=== PATIENT | female | born 1990 | race Asian ===

== ENCOUNTER 2017-07-29 07:25 | Inpatient (IN) | payer OTHER ==
[2017-07-29] MEDS: SODIUM CHLORIDE 0.9% 1L BAG IV* (09:08)
[2017-07-29] MEDS: CEFEPIME 2GM/50 ML (PMX) 50 ML IVPB (09:09)
[2017-07-29] MEDS: KETOROLAC 15 MG INJ IV (09:09)
[2017-07-29 09:35] LABS: ABNORMAL IP MESSAGE 1; HEMATOCRIT 34.6 % (37.0-47.0); HEMOGLOBIN 11.6 g/dl (12.0-16.0); MEAN CORPUSCULAR HEMOGLOBIN 31.3 pg (29.0-33.0); MEAN CORPUSCULAR HGB CONC 33.5 g/dl (32.0-37.0); MEAN CORPUSCULAR VOLUME 93.3 fl (82.0-101.0); MEAN PLATELET VOLUME 12.8 fl (7.4-10.4); PLATELET COUNT 46 10^3/UL (140-415); RED BLOOD COUNT 3.71 10^6/ul (4.20-5.40)
[2017-07-29 09:35] LABS: WHITE BLOOD COUNT 2.9 10^3/ul (4.8-10.8)
[2017-07-29 09:37] LABS: ADD UMIC NO; UR ASCORBIC ACID NEGATIVE (NEGATIVE); UR BILIRUBIN (Dip) 1+ mg/dL (NEGATIVE); UR BLOOD (Dip) NEGATIVE (NEGATIVE); UR CLARITY CLEAR (CLEAR); UR COLOR AMBER (YELLOW); UR GLUCOSE (Dip) NEGATIVE (NEGATIVE); UR KETONES (Dip) NEGATIVE (NEGATIVE); UR LEUKOCYTE ESTERASE (Dip) NEGATIVE Leu/ul (NEGATIVE); UR NITRITE (Dip) NEGATIVE (NEGATIVE); UR SPECIFIC GRAVITY (Dip) 1.025 (1.003-1.030); UR TOTAL PROTEIN (Dip) NEGATIVE (NEGATIVE); UR UROBILINOGEN (Dip) 2+ mg/dL (NEGATIVE)
[2017-07-29 09:42] LABS: POSITIVE DIFF @See below
[2017-07-29 09:49] LABS: ADD MAN DIFF? YES; INR 1.51; PARTIAL THROMBOPLASTIN TIME 33.7 Sec (25.0-35.0); PROTIME 18.5 Sec (11.9-14.9); PT RATIO 1.4
[2017-07-29 10:39] LABS: ANISOCYTOSIS 1+ (0-0); BAND NEUTROPHILS #M 0.6 10^3/ul (0.0-0.6); BAND NEUTROPHILS % (M) 23 % (0-4); EOSINOPHILS % (M) 4 % (0-7); LYMPHOCYTES #M 0.1 10^3/ul (0.8-2.9); LYMPHOCYTES % (M) 4 % (15-51); MONOCYTES % (M) 1 % (0-11); PLATELET ESTIMATE DECREASED; POIKILOCYTOSIS 1+ (0-0); PROMYELOCYTES % (M) 1 % (0-0); SEGMENTED NEUTROPHILS (M) % 67 % (39-77); SMUDGE%M 11 % (0-0)
[2017-07-29 11:01] LABS: ALANINE AMINOTRANSFERASE 630 IU/L (13-69); ALBUMIN 3.7 g/dl (3.3-4.9); ALBUMIN/GLOBULIN RATIO 1.02; ALKALINE PHOSPHATASE 194 IU/L (42-121); ANION GAP 14 (8-16); BILIRUBIN,INDIRECT 2.5 mg/dl (0-1.1); BILIRUBIN,TOTAL 4.5 mg/dl (0.2-1.3); BLOOD UREA NITROGEN 12 mg/dl (7-20); CALCIUM 8.5 mg/dl (8.4-10.2); CARBON DIOXIDE 20 mmol/L (21-31); CHLORIDE 113 mmol/L (97-110); CREATININE 0.67 mg/dl (0.44-1.00); GLUCOSE 92 mg/dl (70-220); LIPASE 121 U/L (23-300); POTASSIUM 4.6 mmol/L (3.5-5.1); SODIUM 142 mmol/L (135-144); TOTAL PROTEIN 7.3 g/dl (6.1-8.1)
[2017-07-29 11:02] LABS: LACTIC ACID 1.3 mmol/L (0.5-2.0)
[2017-07-29 11:08] LABS: ASPARTATE AMINO TRANSFERASE 803 IU/L (15-46)
[2017-07-29 11:16] LABS: TROPONIN-I < 0.012 ng/ml (0.00-0.12)
[2017-07-29] MEDS ORDERED: ONDANSETRON 4 MG INJ IV ×2 (11:30)
[2017-07-29] MEDS ORDERED: DOCUSATE SODIUM 100 MG CAP PO (11:30)
[2017-07-29] MEDS ORDERED: BISACODYL 10 MG SUPP PR (11:30)
[2017-07-29] MEDS ORDERED: morphine 2 MG INJ IV (11:30)
[2017-07-29] MEDS ORDERED: NACL 0.9% 3 ML SYG IV (11:30)
[2017-07-29] MEDS ORDERED: ACETAMINOPHEN 325 MG TAB PO (11:30)
[2017-07-29] MEDS ORDERED: MAGNESIUM HYDROXIDE 30ML CUP PO (11:30)
[2017-07-29] MEDS: CIPROFLOXACIN 200 MG/D5W IVPB 100 ML IVPB (11:50)
[2017-07-29] MEDS: IBUPROFEN 600 MG TAB PO (13:28)
[2017-07-29 15:00] LABS: LACTIC ACID 1.7 mmol/L (0.5-2.0)
[2017-07-29 15:04] LABS: C-REACTIVE PROTEIN 2.3 mg/dl (0.0-0.9)
[2017-07-29] MEDS: MEROPENEM 500MG/50 ML (PMX) 50 ML IVPB (22:31)
[2017-07-30] MEDS: PANTOPRAZOLE 40 MG INJ IV (06:02)
[2017-07-30] MEDS: MEROPENEM 500MG/50 ML (PMX) 50 ML IVPB ×3 (06:02→21:39)
[2017-07-30 07:31] LABS: WHITE BLOOD COUNT 6.3 10^3/ul (4.8-10.8)
[2017-07-30 07:31] LABS: ABNORMAL IP MESSAGE 1; HEMATOCRIT 32.3 % (37.0-47.0); MEAN CORPUSCULAR HEMOGLOBIN 32.2 pg (29.0-33.0); MEAN CORPUSCULAR HGB CONC 34.1 g/dl (32.0-37.0); MEAN CORPUSCULAR VOLUME 94.4 fl (82.0-101.0); MEAN PLATELET VOLUME 11.9 fl (7.4-10.4); RED BLOOD COUNT 3.42 10^6/ul (4.20-5.40); RED CELL DISTRIBUTION WIDTH 14.5 % (11.5-14.5)
[2017-07-30 07:33] LABS: POSITIVE DIFF @See below
[2017-07-30 07:35] LABS: ADD MAN DIFF? YES; PLATELET COUNT 30 10^3/UL (140-415)
[2017-07-30 07:53] LABS: ALANINE AMINOTRANSFERASE 406 IU/L (13-69); ALBUMIN 2.8 g/dl (3.3-4.9); ALKALINE PHOSPHATASE 137 IU/L (42-121); ANION GAP 10 (8-16); ASPARTATE AMINO TRANSFERASE 312 IU/L (15-46); BILIRUBIN,INDIRECT 2.8 mg/dl (0-1.1); BILIRUBIN,TOTAL 6.5 mg/dl (0.2-1.3); BLOOD UREA NITROGEN 16 mg/dl (7-20); CALCIUM 8.1 mg/dl (8.4-10.2); CARBON DIOXIDE 23 mmol/L (21-31); CHLORIDE 115 mmol/L (97-110); CHOL/HDL RATIO 1.4 RATIO; CHOLESTEROL 75 mg/dl (100-200); CREATININE 0.67 mg/dl (0.44-1.00); GLUCOSE 83 mg/dl (70-220); HDL CHOLESTEROL 53 mg/dl (33-83); LDL CHOLESTEROL,CALCULATED 9 mg/dl; MAGNESIUM 1.6 mg/dl (1.7-2.5); PHOSPHORUS 2.6 mg/dl (2.5-4.9); POTASSIUM 3.8 mmol/L (3.5-5.1); SODIUM 144 mmol/L (135-144); TOTAL PROTEIN 5.9 g/dl (6.1-8.1); TRIGLYCERIDES 65 mg/dl (0-149)
[2017-07-30 08:03] LABS: HEMOGLOBIN A1C 4.5 % (0-5.9)
[2017-07-30 08:09] LABS: FREE THYROXINE INDEX (Calc) 1.73 ug/ml (0.65-3.89); T3 UPTAKE 48.1 % (23.5-40.5); T4 (THYROXINE) 3.6 ug/dl (5.5-11.0)
[2017-07-30] MEDS: LACTULOSE 30ML CUP PO (08:17)
[2017-07-30 08:56] LABS: ANISOCYTOSIS 1+ (0-0); BAND NEUTROPHILS #M 1.5 10^3/ul (0.0-0.6); BAND NEUTROPHILS % (M) 25 % (0-4); BURR CELLS 1+ (0-0); EOSINOPHILS % (M) 1 % (0-7); LYMPHOCYTES #M 0.1 10^3/ul (0.8-2.9); LYMPHOCYTES % (M) 2 % (15-51); MONOCYTE #M 0.4 10^3/ul (0.3-0.9); MONOCYTES % (M) 7 % (0-11); PLATELET ESTIMATE DECREASED; POIKILOCYTOSIS 1+ (0-0); POLYCHROMASIA 1+ (0-0); ROULEAU 1+ (0-0); SEG NEUT #M 4.2 10^3/ul (1.6-7.5); SEGMENTED NEUTROPHILS (M) % 65 % (39-77); SMUDGE%M 2 % (0-0)
[2017-07-30 18:23] LABS: ALANINE AMINOTRANSFERASE 380 IU/L (13-69); ALBUMIN 3.3 g/dl (3.3-4.9); ALKALINE PHOSPHATASE 155 IU/L (42-121); ASPARTATE AMINO TRANSFERASE 256 IU/L (15-46); BILIRUBIN,TOTAL 6.6 mg/dl (0.2-1.3); TOTAL PROTEIN 6.7 g/dl (6.1-8.1)
[2017-07-30 18:25] LABS: BILIRUBIN,TOTAL 6.6 mg/dl (0.2-1.3)
[2017-07-30] MEDS: traMADol 50 MG TAB PO (20:39)
[2017-07-31 05:49] LABS: ADD MAN DIFF? NO
[2017-07-31 05:54] LABS: WHITE BLOOD COUNT 5.3 10^3/ul (4.8-10.8)
[2017-07-31 05:54] LABS: ABNORMAL IP MESSAGE 1; BASOPHILS % 0.4 % (0.0-2.0); EOSINOPHILS # 0.2 10^3/ul (0.0-0.5); EOSINOPHILS % 3.6 % (0.0-7.0); HEMATOCRIT 32.2 % (37.0-47.0); HEMOGLOBIN 10.9 g/dl (12.0-16.0); LYMPHOCYTES # 0.5 10^3/ul (0.8-2.9); LYMPHOCYTES % 10.3 % (15.0-51.0); MEAN CORPUSCULAR HEMOGLOBIN 31.6 pg (29.0-33.0); MEAN CORPUSCULAR HGB CONC 33.9 g/dl (32.0-37.0); MEAN CORPUSCULAR VOLUME 93.3 fl (82.0-101.0); MEAN PLATELET VOLUME 11.5 fl (7.4-10.4); MONOCYTE # 0.6 10^3/ul (0.3-0.9); MONOCYTES % 10.8 % (0.0-11.0); NEUTROPHIL # 3.9 10^3/ul (1.6-7.5); NEUTROPHILS % 73.8 % (39.0-77.0); PLATELET COUNT 45 10^3/UL (140-415); RED BLOOD COUNT 3.45 10^6/ul (4.20-5.40); RED CELL DISTRIBUTION WIDTH 13.9 % (11.5-14.5)
[2017-07-31] MEDS: PANTOPRAZOLE 40 MG INJ IV (05:57)
[2017-07-31] MEDS: MEROPENEM 500MG/50 ML (PMX) 50 ML IVPB ×3 (06:02→21:28)
[2017-07-31 06:21] LABS: PROTIME 20.3 Sec (11.9-14.9); PT RATIO 1.6
[2017-07-31 06:24] LABS: POSITIVE DIFF @See below
[2017-07-31 06:42] LABS: ALANINE AMINOTRANSFERASE 293 IU/L (13-69); ALBUMIN 2.8 g/dl (3.3-4.9); ALBUMIN/GLOBULIN RATIO 0.84; ALKALINE PHOSPHATASE 140 IU/L (42-121); ANION GAP 11 (8-16); ASPARTATE AMINO TRANSFERASE 160 IU/L (15-46); BILIRUBIN,INDIRECT 2.3 mg/dl (0-1.1); BILIRUBIN,TOTAL 4.9 mg/dl (0.2-1.3); BLOOD UREA NITROGEN 11 mg/dl (7-20); CALCIUM 8.2 mg/dl (8.4-10.2); CARBON DIOXIDE 22 mmol/L (21-31); CHLORIDE 112 mmol/L (97-110); CREATININE 0.66 mg/dl (0.44-1.00); GLUCOSE 83 mg/dl (70-220); POTASSIUM 3.6 mmol/L (3.5-5.1); SODIUM 141 mmol/L (135-144); TOTAL PROTEIN 6.1 g/dl (6.1-8.1)
[2017-08-01] MEDS: MEROPENEM 500MG/50 ML (PMX) 50 ML IVPB ×3 (05:44→21:22)
[2017-08-01 06:25] LABS: ADD MAN DIFF? NO
[2017-08-01 06:35] LABS: ABNORMAL IP MESSAGE 1; BASOPHILS % 0.3 % (0.0-2.0); EOSINOPHILS # 0.2 10^3/ul (0.0-0.5); EOSINOPHILS % 5.4 % (0.0-7.0); HEMATOCRIT 32.9 % (37.0-47.0); HEMOGLOBIN 11.3 g/dl (12.0-16.0); LYMPHOCYTES # 0.5 10^3/ul (0.8-2.9); LYMPHOCYTES % 16.4 % (15.0-51.0); MEAN CORPUSCULAR HEMOGLOBIN 31.7 pg (29.0-33.0); MEAN CORPUSCULAR HGB CONC 34.3 g/dl (32.0-37.0); MEAN CORPUSCULAR VOLUME 92.4 fl (82.0-101.0); MEAN PLATELET VOLUME 11.9 fl (7.4-10.4); MONOCYTE # 0.3 10^3/ul (0.3-0.9); MONOCYTES % 11.4 % (0.0-11.0); NEUTROPHILS % 65.8 % (39.0-77.0); PLATELET COUNT 51 10^3/UL (140-415); RED BLOOD COUNT 3.56 10^6/ul (4.20-5.40); RED CELL DISTRIBUTION WIDTH 13.7 % (11.5-14.5)
[2017-08-01 06:45] LABS: POSITIVE DIFF @See below
[2017-08-01 06:59] LABS: ALANINE AMINOTRANSFERASE 240 IU/L (13-69); ALBUMIN/GLOBULIN RATIO 0.85; ALKALINE PHOSPHATASE 175 IU/L (42-121); ANION GAP 14 (8-16); ASPARTATE AMINO TRANSFERASE 99 IU/L (15-46); BILIRUBIN,INDIRECT 1.9 mg/dl (0-1.1); BILIRUBIN,TOTAL 4.4 mg/dl (0.2-1.3); BLOOD UREA NITROGEN 6 mg/dl (7-20); CALCIUM 8.3 mg/dl (8.4-10.2); CARBON DIOXIDE 19 mmol/L (21-31); CHLORIDE 112 mmol/L (97-110); CREATININE 0.61 mg/dl (0.44-1.00); GLUCOSE 89 mg/dl (70-220); POTASSIUM 3.9 mmol/L (3.5-5.1); SODIUM 141 mmol/L (135-144); TOTAL PROTEIN 6.5 g/dl (6.1-8.1)
[2017-08-01] MEDS: FAMOTIDINE 20 MG TAB PO (08:38)
[2017-08-01] MEDS: IBUPROFEN 400 MG TAB PO (08:38)
[2017-08-02 05:43] LABS: ADD MAN DIFF? NO
[2017-08-02] MEDS: MEROPENEM 500MG/50 ML (PMX) 50 ML IVPB ×3 (05:45→21:27)
[2017-08-02 05:48] LABS: ABNORMAL IP MESSAGE 1; BASOPHILS % 0.4 % (0.0-2.0); EOSINOPHILS # 0.1 10^3/ul (0.0-0.5); EOSINOPHILS % 5.6 % (0.0-7.0); HEMATOCRIT 34.3 % (37.0-47.0); HEMOGLOBIN 11.8 g/dl (12.0-16.0); LYMPHOCYTES # 0.5 10^3/ul (0.8-2.9); LYMPHOCYTES % 21.6 % (15.0-51.0); MEAN CORPUSCULAR HEMOGLOBIN 31.6 pg (29.0-33.0); MEAN CORPUSCULAR HGB CONC 34.4 g/dl (32.0-37.0); MEAN CORPUSCULAR VOLUME 91.7 fl (82.0-101.0); MEAN PLATELET VOLUME 10.9 fl (7.4-10.4); MONOCYTE # 0.3 10^3/ul (0.3-0.9); MONOCYTES % 13.4 % (0.0-11.0); NEUTROPHIL # 1.4 10^3/ul (1.6-7.5); NEUTROPHILS % 58.6 % (39.0-77.0); PLATELET COUNT 61 10^3/UL (140-415); RED BLOOD COUNT 3.74 10^6/ul (4.20-5.40); RED CELL DISTRIBUTION WIDTH 13.6 % (11.5-14.5)
[2017-08-02 05:48] LABS: WHITE BLOOD COUNT 2.3 10^3/ul (4.8-10.8)
[2017-08-02 06:50] LABS: C-REACTIVE PROTEIN 3.3 mg/dl (0.0-0.9)
[2017-08-02 06:50] LABS: POSITIVE DIFF @See below
[2017-08-02 07:42] LABS: ERYTHROCYTE SEDIMENTATION RATE 30 mm/Hr (0-20)
[2017-08-02] MEDS: FAMOTIDINE 20 MG TAB PO (08:55)
[2017-08-03] MEDS: MEROPENEM 500MG/50 ML (PMX) 50 ML IVPB ×2 (05:34→13:25)
[2017-08-03] MEDS: FAMOTIDINE 20 MG TAB PO (09:17)
== END 2017-08-03 15:10 | disposition home or self-care (01) | DRG 871 ==
LOC: E/R 07:25 → MS2 11:09
PROVIDERS: Hospitalist
DX: A41.9 Sepsis, unspecified organism (principal); Q44.2 Atresia of bile ducts; K83.0 Cholangitis; D61.818 Other pancytopenia; D68.9 Coagulation defect, unspecified; K76.6 Portal hypertension; K74.60 Unspecified cirrhosis of liver; Z90.49 Acquired absence of other specified parts of digestive tract; R16.1 Splenomegaly, not elsewhere classified
CPT/HCPCS: 36415; 71045; 74181; 80053; 80061; 80076; 81003; 81025; 82247; 82248; 83036; 83605; 83690; 83735; 84100; 84436; 84443; 84479; 84484; 84703; 85025; 85610; 85651; 85730; 86140; 87040; 87086; 93005; 96374; 96375; 99291-25

== ENCOUNTER 2018-03-17 06:55 | Inpatient (IN) | payer OTHER ==
[2018-03-17 08:08] LABS: ABNORMAL IP MESSAGE 1; HEMATOCRIT 33.5 % (37.0-47.0); HEMOGLOBIN 11.3 g/dl (12.0-16.0); MEAN CORPUSCULAR HEMOGLOBIN 31.8 pg (29.0-33.0); MEAN CORPUSCULAR HGB CONC 33.7 g/dl (32.0-37.0); MEAN CORPUSCULAR VOLUME 94.4 fl (82.0-101.0); MEAN PLATELET VOLUME 11.2 fl (7.4-10.4); PLATELET COUNT 45 10^3/UL (140-415); RED BLOOD COUNT 3.55 10^6/ul (4.20-5.40); RED CELL DISTRIBUTION WIDTH 13.3 % (11.5-14.5)
[2018-03-17 08:08] LABS: WHITE BLOOD COUNT 2.2 10^3/ul (4.8-10.8)
[2018-03-17 08:14] LABS: ADD MAN DIFF? YES; POSITIVE DIFF @See below
[2018-03-17 08:21] LABS: ADD UMIC YES; UR AMORPHOUS CRYSTAL FEW /HPF (NONE SEEN); UR ASCORBIC ACID NEGATIVE (NEGATIVE); UR BILIRUBIN (Dip) 1+ mg/dL (NEGATIVE); UR BLOOD (Dip) NEGATIVE (NEGATIVE); UR CLARITY CLOUDY (CLEAR); UR COLOR AMBER (YELLOW); UR GLUCOSE (Dip) NEGATIVE (NEGATIVE); UR KETONES (Dip) NEGATIVE (NEGATIVE); UR LEUKOCYTE ESTERASE (Dip) NEGATIVE Leu/ul (NEGATIVE); UR MUCUS FEW /HPF (NONE SEEN); UR NITRITE (Dip) NEGATIVE (NEGATIVE); UR RBC 1 /HPF (0-5); UR SPECIFIC GRAVITY (Dip) 1.018 (1.003-1.030); UR SQUAMOUS EPITHELIAL CELL FEW /HPF (FEW); UR TOTAL PROTEIN (Dip) NEGATIVE (NEGATIVE); UR UROBILINOGEN (Dip) 2+ mg/dL (NEGATIVE); UR WBC 6 /HPF (0-5)
[2018-03-17 08:28] LABS: ALANINE AMINOTRANSFERASE 314 IU/L (13-69); ALBUMIN 3.9 g/dl (3.3-4.9); ALBUMIN/GLOBULIN RATIO 1.18; ALKALINE PHOSPHATASE 230 IU/L (42-121); ANION GAP 7 (5-13); ASPARTATE AMINO TRANSFERASE 271 IU/L (15-46); BILIRUBIN,INDIRECT 2.5 mg/dl (0-1.1); BILIRUBIN,TOTAL 3.4 mg/dl (0.2-1.3); BLOOD UREA NITROGEN 11 mg/dl (7-20); CALCIUM 9.2 mg/dl (8.4-10.2); CARBON DIOXIDE 25 mmol/L (21-31); CHLORIDE 110 mmol/L (97-110); CREATININE 0.64 mg/dl (0.44-1.00); Estimated GFR > 60 mL/min (>60); GLUCOSE 92 mg/dl (70-220); LIPASE 114 U/L (23-300); POTASSIUM 4.6 mmol/L (3.5-5.1); SODIUM 142 mmol/L (135-144); TOTAL PROTEIN 7.2 g/dl (6.1-8.1)
[2018-03-17 08:47] LABS: BAND NEUTROPHILS #M 0.2 10^3/ul (0.0-0.6); BAND NEUTROPHILS % (M) 10 % (0-4); BASOPHILS % (M) 1 % (0-2); EOSINOPHILS % (M) 4 % (0-7); GIANT THROMBO% (M) 2 % (0-0); LYMPHOCYTES #M 0.4 10^3/ul (0.8-2.9); LYMPHOCYTES % (M) 19 % (15-51); METAMYELOCYTES %M 1 % (0-0); MONOCYTES % (M) 4 % (0-11); PLATELET ESTIMATE SIG DECREASED; POIKILOCYTOSIS 1+ (0-0); PROMYELOCYTES % (M) 1 % (0-0); SEG NEUT #M 1.3 10^3/ul (1.6-7.5); SEGMENTED NEUTROPHILS (M) % 60 % (39-77); TEAR DROP CELLS 1+ (0-0)
[2018-03-17] MEDS: VANCOMYCIN 1 GM (PMX) 250 ML IVPB (08:50)
[2018-03-17] MEDS: SOD CHLORIDE 0.9% 1,000 ML IV ×3 (09:00→14:44)
[2018-03-17] MEDS: CEFEPIME 1GM/50 ML (PMX) 50 ML IVPB (09:15)
[2018-03-17] MEDS ORDERED: ACETAMINOPHEN 325 MG TAB PO (09:30)
[2018-03-17] MEDS ORDERED: ONDANSETRON 4 MG INJ IV (09:30)
[2018-03-17 09:33] LABS: INR 1.29; PROTIME 16.3 Sec (11.9-14.9); PT RATIO 1.3
[2018-03-17 09:34] LABS: PARTIAL THROMBOPLASTIN TIME 32.9 Sec (23.0-35.0)
[2018-03-17 12:08] LABS: LACTIC ACID 0.9 mmol/L (0.5-2.0)
[2018-03-17 14:27] LABS: LACTIC ACID 0.6 mmol/L (0.5-2.0)
[2018-03-17 15:17] LABS: CREATINE KINASE 29 IU/L (23-200)
[2018-03-17] MEDS: CEFEPIME 1GM/50 ML IVPB (20:59)
[2018-03-17] MEDS ORDERED: CEFEPIME HCL 1 GM VIAL IM (21:00)
[2018-03-18] MEDS: SOD CHLORIDE 0.9% 1,000 ML IV ×2 (03:20→07:57)
[2018-03-18 05:42] LABS: ADD MAN DIFF? NO
[2018-03-18 05:52] LABS: ABNORMAL IP MESSAGE 1; HEMATOCRIT 31.9 % (37.0-47.0); HEMOGLOBIN 10.9 g/dl (12.0-16.0); MEAN CORPUSCULAR HGB CONC 34.2 g/dl (32.0-37.0); MEAN CORPUSCULAR VOLUME 93.5 fl (82.0-101.0); PLATELET COUNT 46 10^3/UL (140-415); RED BLOOD COUNT 3.41 10^6/ul (4.20-5.40); RED CELL DISTRIBUTION WIDTH 13.3 % (11.5-14.5)
[2018-03-18 05:52] LABS: WHITE BLOOD COUNT 1.9 10^3/ul (4.8-10.8)
[2018-03-18 06:26] LABS: POSITIVE DIFF @See below
[2018-03-18 06:39] LABS: ALANINE AMINOTRANSFERASE 290 IU/L (13-69); ALBUMIN 3.7 g/dl (3.3-4.9); ALBUMIN/GLOBULIN RATIO 1.08; ALKALINE PHOSPHATASE 258 IU/L (42-121); ANION GAP 7 (5-13); ASPARTATE AMINO TRANSFERASE 252 IU/L (15-46); BILIRUBIN,INDIRECT 1.6 mg/dl (0-1.1); BLOOD UREA NITROGEN 5 mg/dl (7-20); CALCIUM 8.9 mg/dl (8.4-10.2); CARBON DIOXIDE 22 mmol/L (21-31); CHLORIDE 112 mmol/L (97-110); CREATININE 0.56 mg/dl (0.44-1.00); Estimated GFR > 60 mL/min (>60); GLUCOSE 99 mg/dl (70-220); MAGNESIUM 1.8 mg/dl (1.7-2.5); POTASSIUM 4.2 mmol/L (3.5-5.1); SODIUM 141 mmol/L (135-144); TOTAL PROTEIN 7.1 g/dl (6.1-8.1)
[2018-03-18] MEDS: CEFEPIME 1GM/50 ML IVPB (08:00)
[2018-03-18 09:20] LABS: IRON 45 ug/dl (35-150)
[2018-03-18 09:29] LABS: % IRON SATURATION 13 % SAT (22-52); TOTAL IRON BINDING CAPACITY 337 ug/dl (241-421)
[2018-03-18 09:40] LABS: ANISOCYTOSIS 1+ (0-0); BAND NEUTROPHILS #M 0.1 10^3/ul (0.0-0.6); BAND NEUTROPHILS % (M) 6 % (0-4); BURR CELLS 1+ (0-0); ELLIPTO 1+ (0-0); EOSINOPHILS % (M) 4 % (0-7); LYMPHOCYTES #M 0.4 10^3/ul (0.8-2.9); LYMPHOCYTES % (M) 24 % (15-51); MONOCYTE #M 0.3 10^3/ul (0.3-0.9); MONOCYTES % (M) 19 % (0-11); MYELOCYTES % (M) 2 % (0-0); OVALOCYTES 1+ (0-0); PLATELET ESTIMATE SIG DECREASED; POIKILOCYTOSIS 1+ (0-0); SEG NEUT #M 0.9 10^3/ul (1.6-7.5); SEGMENTED NEUTROPHILS (M) % 45 % (39-77); SMUDGE%M 1 % (0-0); TARGET CELLS 1+ (0-0); TEAR DROP CELLS 1+ (0-0)
[2018-03-18 10:28] LABS: FOLATE 11.6 ng/ml (2.8-20.0)
[2018-03-18] MEDS: SOD FERRIC GLUC COMPLX 125 MG in SOD CHLORIDE 0.9% 100 ML IVPB (12:38)
== END 2018-03-18 16:02 | disposition home or self-care (01) | DRG 866 ==
LOC: E/R 06:55 → 2NE 09:20
DX: B34.9 Viral infection, unspecified (principal); D61.818 Other pancytopenia; K83.09 Other cholangitis; D64.9 Anemia, unspecified; R50.9 Fever, unspecified; M79.10 Myalgia, unspecified site
CPT/HCPCS: 36415; 71045; 76705; 80053; 81001; 81025; 82550; 82607; 82746; 83540; 83605; 83690; 83735; 85025; 85610; 85730; 87040; 87086; 87400; 93005; 96374; 99285-25

== ENCOUNTER 2018-04-13 18:17 | Inpatient (IN) | payer OTHER ==
[2018-04-13] MEDS: SODIUM CHLORIDE 0.9% 1L BAG IV* (19:42)
[2018-04-13 20:44] LABS: ADD UMIC YES; UR AMORPHOUS CRYSTAL MODERATE /HPF (NONE SEEN); UR ASCORBIC ACID NEGATIVE (NEGATIVE); UR BACTERIA FEW /HPF (NONE SEEN); UR BILIRUBIN (Dip) NEGATIVE (NEGATIVE); UR BLOOD (Dip) NEGATIVE (NEGATIVE); UR CLARITY CLOUDY (CLEAR); UR COLOR AMBER (YELLOW); UR GLUCOSE (Dip) NEGATIVE (NEGATIVE); UR KETONES (Dip) NEGATIVE (NEGATIVE); UR LEUKOCYTE ESTERASE (Dip) NEGATIVE Leu/ul (NEGATIVE); UR NITRITE (Dip) NEGATIVE (NEGATIVE); UR RBC 2 /HPF (0-5); UR SPECIFIC GRAVITY (Dip) 1.014 (1.003-1.030); UR SQUAMOUS EPITHELIAL CELL MODERATE /HPF (FEW); UR TOTAL PROTEIN (Dip) NEGATIVE (NEGATIVE); UR UROBILINOGEN (Dip) 2+ mg/dL (NEGATIVE); UR WBC 24 /HPF (0-5)
[2018-04-13 20:54] LABS: ADD MAN DIFF? NO
[2018-04-13 20:56] LABS: WHITE BLOOD COUNT 3.4 10^3/ul (4.8-10.8)
[2018-04-13 20:56] LABS: ABNORMAL IP MESSAGE 1; EOSINOPHILS # 0.1 10^3/ul (0.0-0.5); EOSINOPHILS % 2.1 % (0.0-7.0); HEMATOCRIT 33.5 % (37.0-47.0); HEMOGLOBIN 11.4 g/dl (12.0-16.0); LYMPHOCYTES # 0.4 10^3/ul (0.8-2.9); LYMPHOCYTES % 10.4 % (15.0-51.0); MEAN CORPUSCULAR HEMOGLOBIN 31.8 pg (29.0-33.0); MEAN CORPUSCULAR VOLUME 93.3 fl (82.0-101.0); MEAN PLATELET VOLUME 11.5 fl (7.4-10.4); MONOCYTE # 0.4 10^3/ul (0.3-0.9); MONOCYTES % 11.9 % (0.0-11.0); NEUTROPHIL # 2.5 10^3/ul (1.6-7.5); NEUTROPHILS % 74.7 % (39.0-77.0); PLATELET COUNT 49 10^3/UL (140-415); RED BLOOD COUNT 3.59 10^6/ul (4.20-5.40); RED CELL DISTRIBUTION WIDTH 13.3 % (11.5-14.5)
[2018-04-13] MEDS: CEFEPIME 2GM/50 ML (PMX) 50 ML IVPB (21:02)
[2018-04-13 21:03] LABS: POSITIVE DIFF @See below
[2018-04-13 21:14] LABS: ANION GAP 10 (5-13); BLOOD UREA NITROGEN 9 mg/dl (7-20); CALCIUM 9.1 mg/dl (8.4-10.2); CARBON DIOXIDE 25 mmol/L (21-31); CHLORIDE 106 mmol/L (97-110); CREATININE 0.71 mg/dl (0.44-1.00); Estimated GFR > 60 mL/min (>60); GLUCOSE 114 mg/dl (70-220); POTASSIUM 3.9 mmol/L (3.5-5.1); SODIUM 141 mmol/L (135-144)
[2018-04-13 21:15] LABS: INR 1.21; PROTIME 15.4 Sec (11.9-14.9); PT RATIO 1.2
[2018-04-13 21:16] LABS: PARTIAL THROMBOPLASTIN TIME 29.6 Sec (23.0-35.0)
[2018-04-13] MEDS: KETOROLAC 15 MG INJ IV (21:16)
[2018-04-13] MEDS: ACETAMINOPHEN 500 MG TAB PO (21:21)
[2018-04-13 21:27] LABS: TROPONIN-I < 0.012 ng/ml (0.000-0.120)
[2018-04-13 21:46] LABS: ALANINE AMINOTRANSFERASE 275 IU/L (13-69); ALKALINE PHOSPHATASE 228 IU/L (42-121); ASPARTATE AMINO TRANSFERASE 297 IU/L (15-46); BILIRUBIN,INDIRECT 1.9 mg/dl (0-1.1); BILIRUBIN,TOTAL 2.2 mg/dl (0.2-1.3); LIPASE 109 U/L (23-300); TOTAL PROTEIN 7.6 g/dl (6.1-8.1)
[2018-04-13 22:30] LABS: BAND NEUTROPHILS #M 0.1 10^3/ul (0.0-0.6); BAND NEUTROPHILS % (M) 4 % (0-4); EOSINOPHILS % (M) 4 % (0-7); LYMPHOCYTES #M 0.3 10^3/ul (0.8-2.9); LYMPHOCYTES % (M) 11 % (15-51); MONOCYTE #M 0.2 10^3/ul (0.3-0.9); MONOCYTES % (M) 6 % (0-11); OVALOCYTES 1+ (0-0); PLATELET ESTIMATE DECREASED; POIKILOCYTOSIS 1+ (0-0); SEG NEUT #M 2.6 10^3/ul (1.6-7.5); SEGMENTED NEUTROPHILS (M) % 75 % (39-77); SMUDGE%M 5 % (0-0)
[2018-04-13] MEDS ORDERED: NACL 0.9% 3 ML SYG IV (22:30)
[2018-04-13] MEDS ORDERED: ACETAMINOPHEN 325 MG TAB PO ×3 (22:30)
[2018-04-13] MEDS ORDERED: BISACODYL (EC) 5 MG TAB PO (22:30)
[2018-04-13] MEDS ORDERED: DOCUSATE SODIUM 100 MG CAP PO (22:30)
[2018-04-13] MEDS ORDERED: ONDANSETRON 4 MG INJ IV ×2 (22:30)
[2018-04-14] MEDS ORDERED: PIPER-TAZO 3.375 GM IV (PMX) 100 ML IVPB
[2018-04-14 00:10] LABS: LACTIC ACID 0.9 mmol/L (0.5-2.0)
[2018-04-14] MEDS: SOD CHLORIDE 0.9% 1,000 ML IV ×3 (00:52→12:47)
[2018-04-14] MEDS: metroNIDAZOLE 500 MG/NS (PMX) 100 ML IVPB ×3 (04:05→22:03)
[2018-04-14 05:20] LABS: ADD MAN DIFF? NO
[2018-04-14 05:27] LABS: ABNORMAL IP MESSAGE 1; BASOPHILS % 0.7 % (0.0-2.0); EOSINOPHILS # 0.1 10^3/ul (0.0-0.5); EOSINOPHILS % 3.7 % (0.0-7.0); HEMATOCRIT 36.1 % (37.0-47.0); HEMOGLOBIN 11.8 g/dl (12.0-16.0); LYMPHOCYTES # 0.6 10^3/ul (0.8-2.9); LYMPHOCYTES % 20.1 % (15.0-51.0); MEAN CORPUSCULAR HEMOGLOBIN 31.5 pg (29.0-33.0); MEAN CORPUSCULAR HGB CONC 32.7 g/dl (32.0-37.0); MEAN CORPUSCULAR VOLUME 96.3 fl (82.0-101.0); MONOCYTE # 0.3 10^3/ul (0.3-0.9); MONOCYTES % 11.6 % (0.0-11.0); NEUTROPHIL # 1.9 10^3/ul (1.6-7.5); NEUTROPHILS % 63.6 % (39.0-77.0); RED BLOOD COUNT 3.75 10^6/ul (4.20-5.40); RED CELL DISTRIBUTION WIDTH 13.2 % (11.5-14.5)
[2018-04-14 05:27] LABS: WHITE BLOOD COUNT 2.9 10^3/ul (4.8-10.8)
[2018-04-14 05:28] LABS: PLATELET COUNT 39 10^3/UL (140-415); POSITIVE DIFF @See below
[2018-04-14 05:38] LABS: HEMOGLOBIN A1C 4.5 % (0-5.9)
[2018-04-14] MEDS: CIPROFLOXACIN 400MG/D5W 200 ML IVPB ×2 (05:46→17:57)
[2018-04-14 05:56] LABS: ALANINE AMINOTRANSFERASE 237 IU/L (13-69); ALBUMIN 3.9 g/dl (3.3-4.9); ALBUMIN/GLOBULIN RATIO 1.02; ALKALINE PHOSPHATASE 225 IU/L (42-121); ANION GAP 13 (5-13); ASPARTATE AMINO TRANSFERASE 227 IU/L (15-46); BILIRUBIN,INDIRECT 1.8 mg/dl (0-1.1); BILIRUBIN,TOTAL 1.8 mg/dl (0.2-1.3); BLOOD UREA NITROGEN 9 mg/dl (7-20); CALCIUM 8.9 mg/dl (8.4-10.2); CARBON DIOXIDE 19 mmol/L (21-31); CHLORIDE 110 mmol/L (97-110); CHOLESTEROL 140 mg/dl (100-200); CREATININE 0.63 mg/dl (0.44-1.00); Estimated GFR > 60 mL/min (>60); GLUCOSE 81 mg/dl (70-220); HDL CHOLESTEROL 68 mg/dl (33-83); LDL CHOLESTEROL,CALCULATED 58 mg/dl; POTASSIUM 4.5 mmol/L (3.5-5.1); SODIUM 142 mmol/L (135-144); TOTAL PROTEIN 7.7 g/dl (6.1-8.1); TRIGLYCERIDES 69 mg/dl (0-149)
[2018-04-14] MEDS: PANTOPRAZOLE 40 MG INJ IV (09:31)
[2018-04-15] MEDS: SOD CHLORIDE 0.9% 1,000 ML IV ×2 (02:52→14:29)
[2018-04-15] MEDS: CIPROFLOXACIN 400MG/D5W 200 ML IVPB (04:48)
[2018-04-15 05:55] LABS: ABNORMAL IP MESSAGE 1; HEMOGLOBIN 9.7 g/dl (12.0-16.0); MEAN CORPUSCULAR HEMOGLOBIN 31.7 pg (29.0-33.0); MEAN CORPUSCULAR HGB CONC 33.4 g/dl (32.0-37.0); MEAN CORPUSCULAR VOLUME 94.8 fl (82.0-101.0); MEAN PLATELET VOLUME 10.9 fl (7.4-10.4); PLATELET COUNT 39 10^3/UL (140-415); RED BLOOD COUNT 3.06 10^6/ul (4.20-5.40); RED CELL DISTRIBUTION WIDTH 13.3 % (11.5-14.5)
[2018-04-15 05:55] LABS: WHITE BLOOD COUNT 1.6 10^3/ul (4.8-10.8)
[2018-04-15 06:00] LABS: ADD MAN DIFF? YES; POSITIVE DIFF @See below
[2018-04-15] MEDS: PANTOPRAZOLE 40 MG INJ IV (06:00)
[2018-04-15] MEDS: metroNIDAZOLE 500 MG/NS (PMX) 100 ML IVPB ×2 (06:00→14:25)
[2018-04-15 06:29] LABS: INR 1.26; PARTIAL THROMBOPLASTIN TIME 32.2 Sec (23.0-35.0); PROTIME 15.9 Sec (11.9-14.9); PT RATIO 1.2
[2018-04-15 06:36] LABS: AMMONIA 45 umol/l (9-30)
[2018-04-15 06:39] LABS: ALANINE AMINOTRANSFERASE 162 IU/L (13-69); ALBUMIN 3.1 g/dl (3.3-4.9); ALKALINE PHOSPHATASE 196 IU/L (42-121); ANION GAP 3 (5-13); ASPARTATE AMINO TRANSFERASE 115 IU/L (15-46); BILIRUBIN,INDIRECT 1.1 mg/dl (0-1.1); BILIRUBIN,TOTAL 1.1 mg/dl (0.2-1.3); BLOOD UREA NITROGEN 8 mg/dl (7-20); CALCIUM 8.4 mg/dl (8.4-10.2); CARBON DIOXIDE 22 mmol/L (21-31); CHLORIDE 113 mmol/L (97-110); CREATININE 0.61 mg/dl (0.44-1.00); Estimated GFR > 60 mL/min (>60); GLUCOSE 105 mg/dl (70-220); POTASSIUM 3.9 mmol/L (3.5-5.1); SODIUM 138 mmol/L (135-144); TOTAL PROTEIN 6.2 g/dl (6.1-8.1)
[2018-04-15 06:48] LABS: MAGNESIUM 1.9 mg/dl (1.7-2.5)
[2018-04-15 06:48] LABS: PHOSPHORUS 3.4 mg/dl (2.5-4.9)
[2018-04-15] MEDS: LACTULOSE 30ML CUP PO (08:44)
[2018-04-15 08:58] LABS: ANISOCYTOSIS 1+ (0-0); BAND NEUTROPHILS % (M) 6 % (0-4); EOSINOPHILS % (M) 10 % (0-7); LYMPHOCYTES #M 0.5 10^3/ul (0.8-2.9); LYMPHOCYTES % (M) 33 % (15-51); MONOCYTE #M 0.1 10^3/ul (0.3-0.9); MONOCYTES % (M) 7 % (0-11); PLATELET ESTIMATE SIG DECREASED; POIKILOCYTOSIS 1+ (0-0); POLYCHROMASIA 1+ (0-0); REACTIVE LYMPHOCYTES% (M) 4 % (0-0); SEG NEUT #M 0.6 10^3/ul (1.6-7.5); SEGMENTED NEUTROPHILS (M) % 40 % (39-77); SMUDGE%M 4 % (0-0)
[2018-04-15 11:17] LABS: IRON 54 ug/dl (35-150)
[2018-04-15 11:23] LABS: C-REACTIVE PROTEIN 2.2 mg/dl (0.0-0.9)
[2018-04-15 11:28] LABS: % IRON SATURATION 18 % SAT (22-52); TOTAL IRON BINDING CAPACITY 292 ug/dl (241-421)
[2018-04-15 12:27] LABS: FERRITIN 69.9 ng/ml (6.2-137.0)
== END 2018-04-15 18:00 | disposition home or self-care (01) | DRG 872 ==
LOC: MS1 04-14 14:35 → FTE 18:17 → MS1 22:16
DX: A41.9 Sepsis, unspecified organism (principal); K83.09 Other cholangitis; D61.818 Other pancytopenia; K74.69 Other cirrhosis of liver; Z76.82 Awaiting organ transplant status
CPT/HCPCS: 36415; 74181; 80048; 80053; 80061; 80076; 81001; 81025; 82140; 82728; 83036; 83540; 83605; 83690; 83735; 84100; 84443; 84484; 85025; 85610; 85730; 86140; 87040; 87081; 87086; 87400; 93005; 96361; 96374; 96375; 99291-25

== ENCOUNTER 2018-08-22 05:50 | Emergency (ER) | payer BC, OTHER ==
[2018-08-22] MEDS: ONDANSETRON 4 MG INJ IV (07:28)
[2018-08-22] MEDS: SOD CHLORIDE 0.9% 1,000 ML IV (07:29)
[2018-08-22] MEDS: KETOROLAC 30 MG INJ IV (07:29)
[2018-08-22 07:34] LABS: ADD MAN DIFF? NO
[2018-08-22 07:39] LABS: ABNORMAL IP MESSAGE 1; BASOPHILS % 0.3 % (0.0-2.0); EOSINOPHILS % 0.5 % (0.0-7.0); HEMATOCRIT 39.9 % (37.0-47.0); HEMOGLOBIN 12.9 g/dl (12.0-16.0); LYMPHOCYTES # 0.3 10^3/ul (0.8-2.9); LYMPHOCYTES % 8.1 % (15.0-51.0); MEAN CORPUSCULAR HEMOGLOBIN 31.4 pg (29.0-33.0); MEAN CORPUSCULAR HGB CONC 32.3 g/dl (32.0-37.0); MEAN CORPUSCULAR VOLUME 97.1 fl (82.0-101.0); MONOCYTE # 0.2 10^3/ul (0.3-0.9); MONOCYTES % 5.8 % (0.0-11.0); NEUTROPHIL # 3.4 10^3/ul (1.6-7.5); NEUTROPHILS % 84.8 % (39.0-77.0); PLATELET COUNT 67 10^3/UL (140-415); RED BLOOD COUNT 4.11 10^6/ul (4.20-5.40); RED CELL DISTRIBUTION WIDTH 14.6 % (11.5-14.5)
[2018-08-22 07:41] LABS: POSITIVE DIFF @See below
[2018-08-22 07:51] LABS: ADD UMIC YES; UR CLARITY BLOODY (CLEAR); UR COLOR RED (YELLOW)
[2018-08-22 07:52] LABS: UR GLUCOSE (Dip) NEGATIVE (NEGATIVE); UR TOTAL PROTEIN (Dip) 2+ mg/dl (NEGATIVE); URINE SPECIFIC GRAVITY (Dip) 1.025 (1.003-1.030)
[2018-08-22 07:53] LABS: UR BILIRUBIN (Dip) NEGATIVE (NEGATIVE); UR BLOOD (Dip) 3+ mg/dL (NEGATIVE); UR KETONES (Dip) 1+ mg/dL (NEGATIVE); UR NITRITE (Dip) NEGATIVE (NEGATIVE); UR UROBILINOGEN (Dip) 0.2 E.U./dL mg/dL (NEGATIVE)
[2018-08-22 07:54] LABS: UR ASCORBIC ACID NEGATIVE (NEGATIVE); UR LEUKOCYTE ESTERASE (Dip) TRACE Leu/ul (NEGATIVE); URINE RBCS >200 /HPF (0)
[2018-08-22 07:55] LABS: UR BACTERIA FEW /HPF (NONE SEEN); UR SQUAMOUS EPITHELIAL CELL RARE /HPF (FEW)
[2018-08-22 07:58] LABS: ALANINE AMINOTRANSFERASE 68 IU/L (13-69); ALBUMIN 4.2 g/dl (3.3-4.9); ALKALINE PHOSPHATASE 103 IU/L (42-121); ANION GAP 10 (5-13); ASPARTATE AMINO TRANSFERASE 72 IU/L (15-46); BILIRUBIN,INDIRECT 2.4 mg/dl (0-1.1); BILIRUBIN,TOTAL 2.4 mg/dl (0.2-1.3); BLOOD UREA NITROGEN 13 mg/dl (7-20); CARBON DIOXIDE 20 mmol/L (21-31); CHLORIDE 111 mmol/L (97-110); CREATININE 0.75 mg/dl (0.44-1.00); Estimated GFR > 60 mL/min (>60); GLUCOSE 87 mg/dl (70-220); LIPASE 43 U/L (23-300); POTASSIUM 4.3 mmol/L (3.5-5.1); SODIUM 141 mmol/L (135-144)
== END 2018-08-22 08:35 | disposition home or self-care (01) ==
LOC: FTE 08:35
DX: R10.10 Upper abdominal pain, unspecified (principal); R50.9 Fever, unspecified; Z87.19 Personal history of other diseases of the digestive system
CPT/HCPCS: 36415; 80053; 81001; 81025; 83605; 83690; 85025; 87040-91; 96361; 96374; 96375; 99284-25

== ENCOUNTER 2018-10-17 11:53 | Inpatient (IN) | payer BC, OTHER ==
[2018-10-17] MEDS: ACETAMINOPHEN 325 MG TAB PO (13:42)
[2018-10-17] MEDS: SODIUM CHLORIDE 0.9% 1L BAG IV* (13:42)
[2018-10-17 14:20] LABS: ADD MAN DIFF? NO
[2018-10-17 14:30] LABS: WHITE BLOOD COUNT 3.4 10^3/ul (4.8-10.8)
[2018-10-17 14:30] LABS: ABNORMAL IP MESSAGE 1; BASOPHILS % 0.6 % (0.0-2.0); EOSINOPHILS # 0.1 10^3/ul (0.0-0.5); EOSINOPHILS % 3.6 % (0.0-7.0); HEMATOCRIT 38.8 % (37.0-47.0); HEMOGLOBIN 12.2 g/dl (12.0-16.0); LYMPHOCYTES # 0.4 10^3/ul (0.8-2.9); MEAN CORPUSCULAR HEMOGLOBIN 31.6 pg (29.0-33.0); MEAN CORPUSCULAR HGB CONC 31.4 g/dl (32.0-37.0); MEAN CORPUSCULAR VOLUME 100.5 fl (82.0-101.0); MEAN PLATELET VOLUME 11.2 fl (7.4-10.4); MONOCYTE # 0.3 10^3/ul (0.3-0.9); MONOCYTES % 8.6 % (0.0-11.0); NEUTROPHIL # 2.5 10^3/ul (1.6-7.5); NEUTROPHILS % 73.9 % (39.0-77.0); PLATELET COUNT 57 10^3/UL (140-415); RED BLOOD COUNT 3.86 10^6/ul (4.20-5.40); RED CELL DISTRIBUTION WIDTH 14.4 % (11.5-14.5)
[2018-10-17 14:31] LABS: ADD UMIC YES; UR ASCORBIC ACID NEGATIVE (NEGATIVE); UR BACTERIA FEW /HPF (NONE SEEN); UR BILIRUBIN (Dip) NEGATIVE (NEGATIVE); UR BLOOD (Dip) NEGATIVE (NEGATIVE); UR CLARITY SLIGHTLY CLOUDY (CLEAR); UR COLOR AMBER (YELLOW); UR GLUCOSE (Dip) NEGATIVE (NEGATIVE); UR KETONES (Dip) NEGATIVE (NEGATIVE); UR LEUKOCYTE ESTERASE (Dip) TRACE Leu/ul (NEGATIVE); UR MUCUS FEW /HPF (NONE SEEN); UR NITRITE (Dip) NEGATIVE (NEGATIVE); UR RBC 0 /HPF (0-5); UR SPECIFIC GRAVITY (Dip) 1.017 (1.003-1.030); UR SQUAMOUS EPITHELIAL CELL FEW /HPF (FEW); UR TOTAL PROTEIN (Dip) NEGATIVE (NEGATIVE); UR UROBILINOGEN (Dip) NEGATIVE (NEGATIVE); UR WBC 3 /HPF (0-5)
[2018-10-17 14:39] LABS: POSITIVE DIFF @See below
[2018-10-17 14:44] LABS: ALANINE AMINOTRANSFERASE 202 IU/L (13-69); ALBUMIN/GLOBULIN RATIO 1.02; ALKALINE PHOSPHATASE 162 IU/L (42-121); ANION GAP 6 (5-13); ASPARTATE AMINO TRANSFERASE 276 IU/L (15-46); BILIRUBIN,INDIRECT 1.8 mg/dl (0-1.1); BILIRUBIN,TOTAL 1.8 mg/dl (0.2-1.3); BLOOD UREA NITROGEN 9 mg/dl (7-20); CALCIUM 9.4 mg/dl (8.4-10.2); CARBON DIOXIDE 27 mmol/L (21-31); CHLORIDE 109 mmol/L (97-110); CREATININE 0.79 mg/dl (0.44-1.00); Estimated GFR > 60 mL/min (>60); GLUCOSE 86 mg/dl (70-220); POTASSIUM 4.6 mmol/L (3.5-5.1); SODIUM 142 mmol/L (135-144); TOTAL PROTEIN 7.9 g/dl (6.1-8.1)
[2018-10-17] MEDS: ONDANSETRON 4 MG INJ IV (14:44)
[2018-10-17 14:54] LABS: INR 1.19; PROTIME 15.2 Sec (11.9-14.9); PT RATIO 1.2
[2018-10-17 14:55] LABS: PARTIAL THROMBOPLASTIN TIME 30.6 Sec (23.0-35.0); TROPONIN-I < 0.012 ng/ml (0.000-0.120)
[2018-10-17] MEDS: IBUPROFEN 600 MG TAB PO ×2 (15:09→19:12)
[2018-10-17] MEDS: CEFTRIAXONE 1 GM/50 ML (PMX) 50 ML IVPB (16:04)
[2018-10-17 16:23] LABS: BAND NEUTROPHILS % (M) 2 % (0-4); BURR CELLS 1+ (0-0); LYMPHOCYTES #M 0.5 10^3/ul (0.8-2.9); LYMPHOCYTES % (M) 16 % (15-51); MONOCYTE #M 0.3 10^3/ul (0.3-0.9); MONOCYTES % (M) 11 % (0-11); OVALOCYTES 1+ (0-0); PLATELET ESTIMATE DECREASED; POIKILOCYTOSIS 2+ (0-0); SEG NEUT #M 2.4 10^3/ul (1.6-7.5); SEGMENTED NEUTROPHILS (M) % 71 % (39-77); SMUDGE%M 7 % (0-0)
[2018-10-17] MEDS ORDERED: ONDANSETRON 4 MG INJ IV (16:30)
[2018-10-17] MEDS ORDERED: morphine 2 MG INJ IV (16:30)
[2018-10-17] MEDS ORDERED: NACL 0.9% 3 ML SYG IV (16:30)
[2018-10-17] MEDS: metroNIDAZOLE 500 MG/NS (PMX) 100 ML IVPB ×2 (16:57→23:17)
[2018-10-17] MEDS: DEXTROSE 5%-0.45% NACL 1,000 ML IV (16:58)
[2018-10-17] MEDS: LEVOFLOXACIN 750MG/D5W (PMX) 150 ML IVPB (16:58)
[2018-10-17 20:15] LABS: LACTIC ACID 1.1 mmol/L (0.5-2.0)
[2018-10-18] MEDS: DEXTROSE 5%-0.45% NACL 1,000 ML IV ×4 (02:06→16:52)
[2018-10-18] MEDS: metroNIDAZOLE 500 MG/NS (PMX) 100 ML IVPB ×3 (05:42→21:52)
[2018-10-18 06:27] LABS: ADD MAN DIFF? NO
[2018-10-18 06:37] LABS: ABNORMAL IP MESSAGE 1; BASOPHILS % 0.5 % (0.0-2.0); EOSINOPHILS # 0.1 10^3/ul (0.0-0.5); EOSINOPHILS % 5.4 % (0.0-7.0); HEMATOCRIT 32.2 % (37.0-47.0); HEMOGLOBIN 10.6 g/dl (12.0-16.0); LYMPHOCYTES # 0.4 10^3/ul (0.8-2.9); LYMPHOCYTES % 20.1 % (15.0-51.0); MEAN CORPUSCULAR HEMOGLOBIN 32.6 pg (29.0-33.0); MEAN CORPUSCULAR HGB CONC 32.9 g/dl (32.0-37.0); MEAN CORPUSCULAR VOLUME 99.1 fl (82.0-101.0); MEAN PLATELET VOLUME 11.2 fl (7.4-10.4); MONOCYTE # 0.2 10^3/ul (0.3-0.9); NEUTROPHIL # 1.1 10^3/ul (1.6-7.5); NEUTROPHILS % 60.5 % (39.0-77.0); PLATELET COUNT 43 10^3/UL (140-415); RED BLOOD COUNT 3.25 10^6/ul (4.20-5.40); RED CELL DISTRIBUTION WIDTH 14.1 % (11.5-14.5)
[2018-10-18 06:37] LABS: WHITE BLOOD COUNT 1.8 10^3/ul (4.8-10.8)
[2018-10-18 07:02] LABS: POSITIVE DIFF @See below
[2018-10-18 07:18] LABS: HEMOGLOBIN A1C 4.5 % (0-5.9)
[2018-10-18 07:57] LABS: ANISOCYTOSIS 3+ (0-0); BAND NEUTROPHILS #M 0.1 10^3/ul (0.0-0.6); BAND NEUTROPHILS % (M) 9 % (0-4); EOSINOPHILS % (M) 4 % (0-7); LYMPHOCYTES #M 0.4 10^3/ul (0.8-2.9); LYMPHOCYTES % (M) 27 % (15-51); MONOCYTE #M 0.2 10^3/ul (0.3-0.9); MONOCYTES % (M) 13 % (0-11); PLATELET ESTIMATE SIG DECREASED; POIKILOCYTOSIS 2+ (0-0); POLYCHROMASIA 3+ (0-0); ROULEAU 1+ (0-0); SEG NEUT #M 0.8 10^3/ul (1.6-7.5); SEGMENTED NEUTROPHILS (M) % 47 % (39-77); SMUDGE%M 19 % (0-0)
[2018-10-18 08:56] LABS: ALANINE AMINOTRANSFERASE 256 IU/L (13-69); ALKALINE PHOSPHATASE 156 IU/L (42-121); ANION GAP 6 (5-13); ASPARTATE AMINO TRANSFERASE 321 IU/L (15-46); BILIRUBIN,INDIRECT 1.5 mg/dl (0-1.1); BILIRUBIN,TOTAL 1.5 mg/dl (0.2-1.3); BLOOD UREA NITROGEN 6 mg/dl (7-20); CALCIUM 8.3 mg/dl (8.4-10.2); CARBON DIOXIDE 22 mmol/L (21-31); CHLORIDE 114 mmol/L (97-110); CHOL/HDL RATIO 1.9 RATIO; CHOLESTEROL 88 mg/dl (100-200); CREATININE 0.64 mg/dl (0.44-1.00); Estimated GFR > 60 mL/min (>60); GLUCOSE 97 mg/dl (70-220); HDL CHOLESTEROL 45 mg/dl (33-83); LDL CHOLESTEROL,CALCULATED 37 mg/dl; MAGNESIUM 1.8 mg/dl (1.7-2.5); POTASSIUM 4.2 mmol/L (3.5-5.1); SODIUM 142 mmol/L (135-144); TOTAL PROTEIN 6.3 g/dl (6.1-8.1); TRIGLYCERIDES 32 mg/dl (0-149)
[2018-10-18 11:56] LABS: THYROID STIMULATING HORMONE 0.639 MIU/L (0.465-4.680)
[2018-10-18] MEDS: LACTULOSE 30ML CUP PO (12:39)
[2018-10-18] MEDS: LEVOFLOXACIN 750MG/D5W (PMX) 150 ML IVPB (16:52)
[2018-10-19] MEDS: metroNIDAZOLE 500 MG/NS (PMX) 100 ML IVPB ×3 (05:58→21:40)
[2018-10-19 06:04] LABS: ADD MAN DIFF? NO
[2018-10-19 06:09] LABS: ABNORMAL IP MESSAGE 1; BASOPHILS % 0.6 % (0.0-2.0); EOSINOPHILS # 0.1 10^3/ul (0.0-0.5); EOSINOPHILS % 7.4 % (0.0-7.0); HEMATOCRIT 33.6 % (37.0-47.0); HEMOGLOBIN 10.9 g/dl (12.0-16.0); LYMPHOCYTES # 0.4 10^3/ul (0.8-2.9); LYMPHOCYTES % 25.1 % (15.0-51.0); MEAN CORPUSCULAR HEMOGLOBIN 32.2 pg (29.0-33.0); MEAN CORPUSCULAR HGB CONC 32.4 g/dl (32.0-37.0); MEAN CORPUSCULAR VOLUME 99.1 fl (82.0-101.0); MEAN PLATELET VOLUME 11.2 fl (7.4-10.4); MONOCYTE # 0.2 10^3/ul (0.3-0.9); NEUTROPHILS % 54.9 % (39.0-77.0); RED BLOOD COUNT 3.39 10^6/ul (4.20-5.40)
[2018-10-19 06:09] LABS: WHITE BLOOD COUNT 1.8 10^3/ul (4.8-10.8)
[2018-10-19 06:19] LABS: POSITIVE DIFF @See below
[2018-10-19 06:20] LABS: PLATELET COUNT 57 10^3/UL (140-415)
[2018-10-19 06:30] LABS: MAGNESIUM 1.8 mg/dl (1.7-2.5)
[2018-10-19 06:43] LABS: ANION GAP 6 (5-13); Estimated GFR > 60 mL/min (>60)
[2018-10-19 07:05] LABS: ALANINE AMINOTRANSFERASE 281 IU/L (13-69); ALBUMIN 3.2 g/dl (3.3-4.9); ALBUMIN/GLOBULIN RATIO 0.91; ALKALINE PHOSPHATASE 214 IU/L (42-121); ASPARTATE AMINO TRANSFERASE 282 IU/L (15-46); BILIRUBIN,INDIRECT 1.4 mg/dl (0-1.1); BILIRUBIN,TOTAL 1.4 mg/dl (0.2-1.3); BLOOD UREA NITROGEN 6 mg/dl (7-20); CALCIUM 8.5 mg/dl (8.4-10.2); CARBON DIOXIDE 21 mmol/L (21-31); CHLORIDE 112 mmol/L (97-110); CREATININE 0.64 mg/dl (0.44-1.00); GLUCOSE 103 mg/dl (70-220); POTASSIUM 4.1 mmol/L (3.5-5.1); SODIUM 139 mmol/L (135-144); TOTAL PROTEIN 6.7 g/dl (6.1-8.1)
[2018-10-19] MEDS: DEXTROSE 5%-0.45% NACL 1,000 ML IV ×3 (07:59→21:47)
[2018-10-19] MEDS: LACTULOSE 30ML CUP PO (08:01)
[2018-10-19] MEDS: LEVOFLOXACIN 750MG/D5W (PMX) 150 ML IVPB (16:02)
[2018-10-20] MEDS: metroNIDAZOLE 500 MG/NS (PMX) 100 ML IVPB (05:45)
[2018-10-20 06:06] LABS: ADD MAN DIFF? NO
[2018-10-20 06:12] LABS: ABNORMAL IP MESSAGE 1; BASOPHILS % 0.9 % (0.0-2.0); EOSINOPHILS # 0.2 10^3/ul (0.0-0.5); EOSINOPHILS % 8.8 % (0.0-7.0); HEMOGLOBIN 11.5 g/dl (12.0-16.0); LYMPHOCYTES # 0.6 10^3/ul (0.8-2.9); LYMPHOCYTES % 28.4 % (15.0-51.0); MEAN CORPUSCULAR HEMOGLOBIN 31.9 pg (29.0-33.0); MEAN CORPUSCULAR HGB CONC 32.9 g/dl (32.0-37.0); MEAN CORPUSCULAR VOLUME 97.2 fl (82.0-101.0); MEAN PLATELET VOLUME 11.3 fl (7.4-10.4); MONOCYTE # 0.2 10^3/ul (0.3-0.9); MONOCYTES % 9.8 % (0.0-11.0); NEUTROPHIL # 1.1 10^3/ul (1.6-7.5); NEUTROPHILS % 51.6 % (39.0-77.0); PLATELET COUNT 69 10^3/UL (140-415)
[2018-10-20 06:12] LABS: WHITE BLOOD COUNT 2.2 10^3/ul (4.8-10.8)
[2018-10-20 06:21] LABS: POSITIVE DIFF @See below
[2018-10-20 06:31] LABS: ALANINE AMINOTRANSFERASE 244 IU/L (13-69); ALBUMIN 3.3 g/dl (3.3-4.9); ALKALINE PHOSPHATASE 224 IU/L (42-121); ANION GAP 7 (5-13); ASPARTATE AMINO TRANSFERASE 189 IU/L (15-46); BILIRUBIN,INDIRECT 0.8 mg/dl (0-1.1); BILIRUBIN,TOTAL 0.8 mg/dl (0.2-1.3); BLOOD UREA NITROGEN 9 mg/dl (7-20); CALCIUM 8.6 mg/dl (8.4-10.2); CARBON DIOXIDE 23 mmol/L (21-31); CHLORIDE 110 mmol/L (97-110); CREATININE 0.73 mg/dl (0.44-1.00); Estimated GFR > 60 mL/min (>60); GLUCOSE 101 mg/dl (70-220); POTASSIUM 4.3 mmol/L (3.5-5.1); SODIUM 140 mmol/L (135-144); TOTAL PROTEIN 6.9 g/dl (6.1-8.1)
[2018-10-20 06:32] LABS: ALBUMIN/GLOBULIN RATIO 0.91
[2018-10-20] MEDS: LACTULOSE 30ML CUP PO (08:09)
[2018-10-20] MEDS ORDERED: LEVOFLOXACIN 750 MG TABLET PO (12:00)
[2018-10-20] MEDS ORDERED: metroNIDAZOLE 500 MG TAB PO (14:00)
== END 2018-10-20 14:15 | disposition home or self-care (01) | DRG 444 ==
LOC: E/R 11:53 → 2NE 17:13
PROVIDERS: Internal Medicine
DX: K83.09 Other cholangitis (principal); Q44.2 Atresia of bile ducts; D61.818 Other pancytopenia; I85.00 Esophageal varices without bleeding; R65.10 Systemic inflammatory response syndrome (SIRS) of non-infectious origin without acute organ dysfunction; Z76.82 Awaiting organ transplant status; K74.69 Other cirrhosis of liver; R16.1 Splenomegaly, not elsewhere classified
CPT/HCPCS: 36415; 71045; 74181; 80053; 80061; 81001; 83036; 83605; 83735; 84443; 84484; 85025; 85610; 85730; 87040-91; 87086; 93005; 99285-25